=== PATIENT | female | born 1975 | race Caucasian/White ===

== ENCOUNTER 2022-08-17 05:39 | Day surgery (SDC) | payer SELFPAY ==
[2022-08-16 11:01] VITALS: BMI 45.6
[2022-08-17] MEDS ORDERED: Lidocaine 1% MPF 2 ML VIAL ONE (06:31)
[2022-08-17] MEDS ORDERED: Midazolam HCl 2 mg/2 ml Vial ONE (07:25)
[2022-08-17] MEDS ORDERED: Lidocaine 1% PF 5 ML VIAL ONE (08:03)
[2022-08-17] MEDS ORDERED: PROPOFOL 200 MG/20 ML VIAL ONE (08:03)
== END 2022-08-17 09:30 | disposition home or self-care (01) ==
LOC: SDC 05:39
PROVIDERS: ATTEND Internal Medicine Gastroenterology
PROC: 0DJ08ZZ Inspection of Upper Intestinal Tract, Via Natural or Artificial Opening Endoscopic (ICD-10-PCS; principal; 2022-08-17)
PROC: 0DBL8ZZ Excision of Transverse Colon, Via Natural or Artificial Opening Endoscopic (ICD-10-PCS; principal; 2022-08-17)
DX: D12.3 Benign neoplasm of transverse colon (principal); K57.30 Diverticulosis of large intestine without perforation or abscess without bleeding; K64.8 Other hemorrhoids; K64.4 Residual hemorrhoidal skin tags; E07.9 Disorder of thyroid, unspecified; K21.9 Gastro-esophageal reflux disease without esophagitis; F17.210 Nicotine dependence, cigarettes, uncomplicated; E66.01 Morbid (severe) obesity due to excess calories; Z68.42 Body mass index [BMI] 45.0-49.9, adult; Z79.890 Hormone replacement therapy; Z79.899 Other long term (current) drug therapy
CPT/HCPCS: 88305; J2250; J2704

== ENCOUNTER 2023-01-25 11:54 | Outpatient (CLI) | payer SELFPAY ==
[2023-01-25 13:13] LABS: #Eosinphils 0.1 10x3/uL (0.0-0.5); #Monocytes 0.7 10x3/uL (0.0-1.1); #Neutrophils 9.1 10x3/uL (1.5-8.4); %Basophils 0.3 % (0.0-2.0); %Eosinophils 0.9 % (0.0-6.0); %Lymphocytes 16.5 % (18.0-47.0); %Monocytes 5.6 % (0.0-10.0); %Neutrophils 76.3 % (40.0-75.0); Hematocrit 39.5 % (34.9-44.5); Hemoglobin 12.7 g/dL (12.0-15.5); Mean Corpuscular HGB CONC 32.2 g/dL (32.0-36.0); Mean Corpuscular Hemoglobin 27.3 pg (27.0-33.0); Mean Corpuscular Volume 84.8 fl (81.6-98.3); Mean Platelet Volume 9.5 fl (7.4-10.4); Platelet Count 285 10x3/uL (150-450); RBC Distribution Width 16.1 % (11.5-14.5); Red Blood Cell (RBC) Count 4.66 10x6/uL (3.90-5.03); White Blood Cell (WBC) Count 11.9 10x3/uL (3.5-10.5)
[2023-01-25 13:19] LABS: BHCG - Serum Negative (NEGATIVE); Pregs Control Background? CLEAR/WHITE (CLR/WHITE); Pregs Control Bar Appear? YES (CONTROL BAR)
[2023-01-25 13:27] LABS: Anion Gap 16 mmol/L (10-20); BUN (Urea Nitrogen) 16 mg/dL (7.0-18.7); Calc. Creatinine Clearance 0 mL/min (70-130); Calcium 9.5 mg/dL (7.8-10.44); Carbon Dioxide 27 mmol/L (22-29); Chloride 102 mmol/L (98-107); Estimated GFR 109; Glucose 84 mg/dL (70-105); Potassium 4.3 mmol/L (3.5-5.1); Sodium 141 mmol/L (136-145)
== END 2023-01-25 11:55 | disposition home or self-care (01) ==
LOC: LABBT 11:54
PROVIDERS: ATTEND Surgery
DX: Z01.818 Encounter for other preprocedural examination (principal); E66.01 Morbid (severe) obesity due to excess calories
CPT/HCPCS: 80048; 84703; 85025; 93005; 93010

== ENCOUNTER 2023-01-25 12:00 | Inpatient (IN) | payer OTHER, SELFPAY ==
[2023-01-25 12:24] VITALS: BMI 49.4
[2023-02-03] MEDS ORDERED: EPINEPHrine 1 MG/ML VIAL ONE (06:38)
[2023-02-03] MEDS ORDERED: Bupivacaine 0.25% HCL 30 ML VIAL ONE (06:38)
[2023-02-03] MEDS ORDERED: fentaNYL PF 100 MCG/2 ML SYRINGE ONE (07:02)
[2023-02-03] MEDS ORDERED: PROPOFOL 20 ML ONE ×2 (07:02→09:24)
[2023-02-03] MEDS ORDERED: Ketamine In 0.9 % NaCl 50 MG/5 ML SYRINGE ONE (07:03)
[2023-02-03] MEDS ORDERED: Rocuronium Bromide 10 MG/ML (10ML VIAL) ONE ×2 (07:03→07:38)
[2023-02-03] MEDS ORDERED: Propofol 500 MG/50 ML VIAL ONE (07:07)
[2023-02-03] MEDS ORDERED: Heparin 5,000 UNITS/ML VIAL ONE (07:13)
[2023-02-03] MEDS ORDERED: CEFAZOLIN 2 GM VIAL ONE (07:20)
[2023-02-03] MEDS ORDERED: Sodium Chloride 0.9% 100 ML ONE ×2 (07:20→09:30)
[2023-02-03] MEDS ORDERED: Lidocaine 1% PF 5 ML VIAL ONE ×2 (07:33→07:38)
[2023-02-03] MEDS ORDERED: Glycopyrrolate 0.2 MG/ML 5 ML SYRINGE ONE ×2 (07:38→07:59)
[2023-02-03] MEDS ORDERED: Ondansetron PF 4 MG/2 ML Vial ONE ×2 (07:38→09:23)
[2023-02-03] MEDS ORDERED: PHENYLEPHRINE-NS 100 MCG/ML 10 ML SYRINGE ONE (07:38)
[2023-02-03] MEDS ORDERED: PROPOFOL 200 MG/20 ML VIAL ONE (07:38)
[2023-02-03] MEDS ORDERED: ePHEDrine Sulfate 50 MG/10 ML VIAL ONE ×2 (07:38→07:57)
[2023-02-03] MEDS ORDERED: Dexamethasone 20 MG/5 ML VIAL ONE ×2 (07:38→07:47)
[2023-02-03] MEDS ORDERED: FENTANYL 500 MCG/10 ML VIAL 2,000 MCG in Sodium Chloride 0.9% 60 ML IV PRN (08:29)
[2023-02-03] MEDS ORDERED: Ondansetron PF 4 MG/2 ML Vial IVP PRN ×2 (08:29→12:43)
[2023-02-03] MEDS ORDERED: Ondansetron HCl/PF 4 MG/2 ML Vial IVP PRN (08:29)
[2023-02-03] MEDS ORDERED: diphenhydrAMINE 25 MG CAP PO PRN (08:29)
[2023-02-03] MEDS ORDERED: Naloxone HCl 0.4 mg/ml Vial IV PRN (08:29)
[2023-02-03] MEDS ORDERED: Promethazine HCl 25 MG/ML VIAL IM PRN ×3 (08:29→12:43)
[2023-02-03] MEDS ORDERED: diphenhydrAMINE 50 MG/ML VIAL IM PRN (08:29)
[2023-02-03] MEDS ORDERED: diphenhydrAMINE 50 MG/ML VIAL IVP PRN ×2 (08:29→12:43)
[2023-02-03] MEDS ORDERED: Communication Order-Pharmacy FS SCH (08:30)
[2023-02-03] MEDS ORDERED: SUGAMMADEX SODIUM 200 MG/2 ML VIAL ONE ×2 (09:24→09:31)
[2023-02-03] MEDS ORDERED: Phenylephrine 40 MG/NS 250 ML 0 ML ONE (09:27)
[2023-02-03] MEDS ORDERED: Dexmedetomidine 200 MCG/2 ML VIAL ONE (09:27)
[2023-02-03] MEDS ORDERED: Dextrose 5% in Water 1,000 ML IV PRN (12:43)
[2023-02-03] MEDS ORDERED: hydrALAZINE 20 MG/ML VIAL SLOW IVP PRN (12:43)
[2023-02-03] MEDS ORDERED: Dextrose 50% Abboject 50 ML SYRINGE SLOW IVP PRN (12:43)
[2023-02-03] MEDS ORDERED: Hydrocodone-Acetamin 15 ML UDCUP PO PRN (12:43)
[2023-02-03] MEDS ORDERED: Glucagon 1 MG/ML KIT IM PRN (12:43)
[2023-02-03] MEDS ORDERED: Ipratropium/Albuterol 3 ML NEB NEB PRN (12:43)
[2023-02-03] MEDS: D5 1/2 NS w/20 mEq KCL 1,000 ML IV SCH ×2 (14:41→22:48)
[2023-02-04 05:22] LABS: #Monocytes 0.8 thou/uL (0.11-0.59); #Neutrophils 9.1 thou/uL (1.40-6.50); %Basophils 0.1 % (0.0-1.0); %Lymphocytes 10.4 % (21.0-51.0); %Monocytes 6.9 % (0.0-10.0); %Neutrophils 82.1 % (42.0-75.0); Hematocrit 36.3 % (36.0-47.0); Hemoglobin 11.7 g/dL (12.0-16.0); Mean Corpuscular HGB CONC 32.2 g/dL (32.0-36.0); Mean Corpuscular Hemoglobin 27.8 pg (27.0-31.0); Mean Corpuscular Volume 86.2 fl (78.0-98.0); Mean Platelet Volume 9.6 fL (7.4-10.4); Platelet Count 282 10x3/uL (130-400); Red Blood Cell (RBC) Count 4.21 mill/uL (4.20-5.40); White Blood Cell (WBC) Count 11.1 10x3/uL (4.8-10.8)
[2023-02-04 05:50] LABS: Anion Gap 14 mmol/L (10-20); BUN (Urea Nitrogen) 5 mg/dL (7.0-18.7); Calc. Creatinine Clearance 225 mL/min (70-130); Calcium 8.5 mg/dL (7.8-10.44); Carbon Dioxide 25 mmol/L (22-29); Chloride 105 mmol/L (98-107); Estimated GFR 109; Glucose 138 mg/dL (70-105); Potassium 3.6 mmol/L (3.5-5.1); Sodium 140 mmol/L (136-145)
[2023-02-04] MEDS: D5 1/2 NS w/20 mEq KCL 1,000 ML IV SCH (07:00)
[2023-02-04 07:51] VITALS: BP 127/80; TEMP 97.7
[2023-02-04] MEDS ORDERED: Loratadine 10 MG TAB PO SCH (09:00)
[2023-02-04] MEDS ORDERED: Non-Formulary Item 1 EACH (Levocetirizine Dihydrochloride [Xyzal] 5 MG Tablet) PO SCH (09:00)
[2023-02-04] MEDS ORDERED: Pantoprazole 40 MG VIAL IVP SCH (09:00)
[2023-02-04] MEDS ORDERED: Levothyroxine 150 MCG TAB PO SCH (09:00)
== END 2023-02-04 12:00 | disposition home or self-care (01) | DRG 621 ==
LOC: SURG A 02-03 06:05
PROVIDERS: ADMIT Surgery; ATTEND Surgery
PROC: 0D164ZA Bypass Stomach to Jejunum, Percutaneous Endoscopic Approach (ICD-10-PCS; principal; 2023-02-03)
PROC: 8E0W4CZ Robotic Assisted Procedure of Trunk Region, Percutaneous Endoscopic Approach (ICD-10-PCS; 2023-02-03)
PROC: 3E033XZ Introduction of Vasopressor into Peripheral Vein, Percutaneous Approach (ICD-10-PCS; 2023-02-03)
DX: E66.01 Morbid (severe) obesity due to excess calories (principal); Z68.42 Body mass index [BMI] 45.0-49.9, adult; K21.9 Gastro-esophageal reflux disease without esophagitis; Z79.899 Other long term (current) drug therapy; E03.9 Hypothyroidism, unspecified; Z98.890 Other specified postprocedural states; Z83.3 Family history of diabetes mellitus; Z82.49 Family history of ischemic heart disease and other diseases of the circulatory system; Z88.8 Allergy status to other drugs, medicaments and biological substances
CPT/HCPCS: 36415; 80048; 85025; C9113; J0171; J1100; J1644; J1650; J2405; J2704; J3480; J3490; S0020